=== PATIENT | female | born 1950 | race Caucasian/White ===

== ENCOUNTER 2016-09-21 13:23 | Inpatient (IN) | payer OTHER, MEDICARE ==
[~2016-09-21] VITALS: Ht 165.1 cm; Wt 52.4 kg
[2016-09-21] VITALS (7 sets, daily range): BP systolic 117–130; BP diastolic 71–74; PULSE 74–117; RESP 16–26; O2SAT 95–97
[~2016-09-21 13:23] MED LIST: CLAR10T PO; DIT5 PO; LISI10TA9 PO; SLO64 PO; SYN25 PO; TAMS0.4C29 PO; WEL100 PO
--- NOTE | 2016-09-21 14:07 | ED.REPORT ---
HPI-Abd Pain F 40 and Over Date of Service September 21, 2016 ED Provider: History of Present Illness: cloudy urine and pain with urination for 4 days. 100.4 a few days ago. primary care is scooby joyner. 12/14. flank pain and lower pelvic pain. no nausea or vomiting. Nursing Notes Stated Complaint: POSS DYSURIA Chief Complaint: Female Abdominal Pain Nursing Notes Reviewed: Yes Allergies: Coded Allergies: Sulfa (Sulfonamide Antibiotics) (Verified Allergy, Intermediate, Hives, ) aspirin (Verified Allergy, Intermediate, tinnitus, "stomach problems", ) diclofenac (Verified Allergy, Intermediate, Rash, 09/21/16) peanut (Verified Allergy, Intermediate, Rash, swelling, 09/21/16) Scheduled Beclomethasone Dipropionate (Qvar) 8.7 Gm Aer.w.adap 1 DOSE INH BID Citalopram (Citalopram) 20 Mg Tablet 20 MG PO DAILY Levothyroxine (Levothyroxine) 25 Mcg Tablet 25 MCG PO DAILY Lisinopril (Lisinopril) 20 Mg Tablet 20 MG PO DAILY Magnesium Chloride (Slow-Mag) 64 Mg Tablet 64 MG PO DAILY Scheduled PRN Acetaminophen/Pamabrom (Midol) 1 Each Tablet 1 TABLET PO BID PRN PRN For Pain Albuterol HFA (Proair HFA) 8.5 Gm Hfa.aer.ad 1-2 PUFFS IH q4-6h PRN PRN For Shortness of Breath Loratadine (Claritin) 10 Mg Capsule 10 MG PO DAILY PRN PRN For Congestion General Time Seen by MD: 14:06 Chief Complaint Abdominal pain, Flank pain right, Flank pain left Hx Obtained From: Patient Arrived By: Walk-in Sudden in Onset?: No Onset Occurred: 4 days ago Symptom Duration: Since onset Progression since Onset: Constant, Gradually worsening Location: : Flank left Quality: Painful Severity: Current: Moderate Severity: Maximum: Moderate Recent Healthcare: No recent hospitalization Past Medical History Past Medical History Mild COPD Hypothyroidism Hypertension History of depression with anxiety History of environmental allergies History of adrenal adenoma History of kidney stones Reports: COPD, Hypertension, Denies: Diabetes mellitus Past Surgical History Bladder sling and cystocele repair Tonsillectomy Hysterectomy Smoking History Current Every Day Smoker (1/2 pack a day for 50 years) Social History Alcohol Use: Denies alcohol use Drug Use: Denies drug use Occupation lives with son, work at [employer] 09/21/2016 Ambulatory Status Independent Review of Systems Basic Review of Systems Eyes: Vision NL, No discharge Skin: No bruising, No rash, No itch Psychiatric: Normal thought content GI: Reports: Abdominal pain, Anorexia, Denies: Nausea, Vomiting Female: Reports: Dysuria, Flank pain, Pelvic pain Complete sys rev & neg: except as marked. Physical Exam Vital Signs Vital Signs (First) Date Time Temp Pulse Resp B/P Pulse Ox O2 Delivery O2 Flow Rate FiO2 09/21/16 13:31 36.5 117 26 130/72 96 Room Air Initial VS: Reviewed Head / Eyes: Atraumatic, Normocephalic, PERRL ENT: Mucous membranes moist, Conjunctiva normal, No scleral icterus Neck: Supple, Non-tender, Full range of motion Lymphatic: No lymphadenopathy Extremities: Vascular intact, Neuro intact, No swelling, No tenderness Skin: Warm, Dry, No cyanosis Neurologic: Alert, Oriented, Nonfocal Psychiatric: Mood/affect normal, Behavior normal, Normal thought content General/Constitutional: Awake, No acute distress, Cooperative, Not toxic appearing Distress / Hydration: Positive: Dehydration mild Appears fatigued Respiratory / Chest: Breath sounds = bilat, No respiratory distress, No rales, No rhonchi, No wheezing, No retractions Diminished Breath Sounds: Positive: Decreased bilateral Please note that there were bronchospasms on initial evaluation bu the midlevel, successfully treated. Cardiovascular: Regular rhythm, Heart sounds NL, No gallop, No murmurs, No rubs Heart Rate / Rhythm: Positive: Tachycardia Abdomen: Atraumatic, Soft, Non-tender, McBurney's non-tender, No guarding, No rebound, BS normoactive, No distention, No hernia, No palpable mass, No pulsatile mass Back: Inspection NL, Non-tender, No CVA tenderness Interpretation & Diagnostics Interpretation & Diagnostics: CT KUB IMPRESSION: As discussed above the study is somewhat compromised by absence of intravenous contrast and also absence of significant body fat allowing delineation of the anatomy through the retroperitoneum. There is asymmetric enlargement of the left kidney with perinephric edema, but without hydronephrosis. The appearance is more likely to represent evidence of pyelonephritis on the left but it also could be produced by a recently relieved urinary tract obstruction on the left. Please correlate clinically to determine whether infection may be present as cause of the asymmetric enlargement of the left kidney. Contrast-enhanced CT scanning may become necessary. Note is made of extensive diverticulosis at the sigmoid colon but without acute diverticulitis. No mass or free fluid. Dictated by: Cristhian Restrepo M.D. on 09/21/2016 at 16:51 Lab Results Interpretation Result Diagram: 09/21/16 1445 09/21/16 1745 Test 09/21/16 13:57 09/21/16 14:45 09/21/16 17:45 Urine Color Straw (YELLOW) Urine Appearance Slightly cloudy Urine pH 6.0 (5.0-8.0) Urine Specific [place] 1.010 (1.003-1.035) Urine Protein 100mg/dL (NEG,TRACE) Urine Glucose (UA) Negativemg/dL (NEGATIVE) Urine Ketones Tracemg/dL (NEGATIVE) Urine Occult Blood Large (NEGATIVE) Urine Nitrite Positive (NEGATIVE) Urine Bilirubin Negative (NEGATIVE) Urine Urobilinogen Normalmg/dL (NORMAL) Urine Leukocyte Esterase Large (NEGATIVE) Urine RBC 3-10/hpf (0-2) Urine WBC >50/hpf (0-5) Urine Epithelial Cells Occasional/hpf (NONE-MOD) Urine Crystals None seen (NONE SEEN) Urine Bacteria Many/hpf (NONE-FEW) Urine Hyaline Casts None/lpf (NONE) Urine Granular Casts None seen (NONE SEEN) Urine Waxy Casts None seen (NONE SEEN) Urine Red Blood Cell Casts None seen (NONE SEEN) Urine White Blood Cell Casts None seen (NONE SEEN) Urine Mucus None seen (None Seen) Urine Trichomonas None seen (NONE SEEN) Urine Yeast None (NONE SEEN) Urinalysis Comment None Urine Culture Reflexed Indicated Urine Osmolality 315mOs/kH2O (250-1200) Urine Random Sodium 20mEq/L Urine Random Chloride 10mEq/L White Blood Count 18.9th/mm3 (3.8-10.1) Red Blood Count 3.40mil/mm3 (3.90-5.20) Hemoglobin 10.9g/dL (12.0-15.6) Hematocrit 30.4% (35.0-46.0) Mean Corpuscular Volume 89.4fL (81-100) Mean Corpuscular Hemoglobin 32.1pg (27.0-35.0) Mean Corpuscular Hemoglobin Concent 35.9% (32.0-37.0) Red Cell Distribution Width 11.4% (12.3-15.4) Platelet Count 382bil/L (150-400) Neutrophils (%) (Auto) 82.7% (40-74) Lymphocytes (%) (Auto) 3.4% (14-46) Monocytes (%) (Auto) 12.8% (4-12) Eosinophils (%) (Auto) 0.1% (0-5) Basophils (%) (Auto) 0.1% (0-3) Potassium Level 4.2mEq/L (3.5-5.2) Chloride Level 80mEq/L (97-108) Carbon Dioxide Level 21mmol/L (18-29) Blood Urea Nitrogen 24mg/dL (8-27) Creatinine 1.16mg/dL (0.57-1.00) Estimat Glomerular Filtration Rate 67mL/min (>59) Glucose Level 138mg/dL (60-99) Osmolality 255 (275-300) Lactic Acid Level 0.6mmol/L (0.4-2.0) Uric Acid 4.2mg/dL (2.6-7.2) Calcium Level 9.7mg/dL (8.5-10.1) Total Bilirubin 0.3mg/dL (0.0-1.2) Aspartate Amino Transf (AST/SGOT) 22U/L (0-50) Alanine Aminotransferase (ALT/SGPT) 20U/L (0-32) Alkaline Phosphatase 111U/L (25-165) Troponin T < 0.010ug/L (0.0-0.011) Total Protein 6.3g/dL (6.4-8.4) Albumin 3.1g/dL (3.4-5.0) Thyroid Stimulating Hormone (TSH) 0.773uIU/mL (0.450-4.500) Hold Grijalva Top Tube Received (Received) Sodium Level 121mEq/L (134-144) Lab Results Interpretation: urine positive for nitrates ECG Interpretation ECG Interpretation: Sinus tachycardia with a rate of 103 Time: 15:56 Interpreted by: ED physician Re-Eval/Medical Decision Med Decision/Clinical Course 66 year old female presents to the ER complaining of flank pain and suprapubic pain for 4 days. Labs are shira, patient with a WBC of 19 and sodium at 118. CAre of patient turned over to Jonathon GARCIA, patient is admitted. Source of Hx: Old records, Family Consultation #1: Referral / Consult Name: Viktoria Church MD Consulted With: Nephrology Call Returned at: 16:29 Hat Steamer: Will see patient, Agrees with eval, Agrees with plan Consultation #2: Referral / Consult Name: Jayden Ellington MD Consulted With: Hospitalist Call Returned at: 17:19 Hat Steamer: Will see patient, Agrees with eval, Agrees with plan, Accepts admit Counseled Regarding: Diagnosis, Lab results, Need for admission Discharge & Departure Primary Impression: Pyelonephritis Additional Impression: Hyponatremia Disposition: ADMITTED TO HOSPITAL Discharge Condition All VS Reviewed: Yes Condition: Stable Referrals: Scooby Joyner PA-C (PCP) EDSupervising Provider for APC: Suman Holt MD Attestation Portions of this note were transcribed by Lyndsay Livingston. I, Dr. Holt personally performed the history, physical exam and medical decision-making; I reviewed and confirmed the accuracy of the information in the transcribed note. Signed by: Teodora Abad, 09/21/2016 at 1800. Attending Statement This is a patient initially seen and evaluated by the mid-level provider. However I personally interviewed and examined this patient. This is a 66-year- old with history of hypertension, hypothyroidism, and mild COPD presents with several days of dysuria, now with left flank pain and fever and mild nausea with poor intake. He does not clinically appear toxic, or severely dehydrated. Abdomen is soft and nontender, and she has no CVA tenderness. Lungs are slightly diminished- found she had some initial bronchospasm received a nebulizer in the department, although on my evaluation her lungs are now clear. Laboratory evaluation is notable for marked leukocytosis, as well as a potentially incidental but severe hyponatremia of 118. Obtain her medication list from medical review of records: Albuterol, Qvar, Celexa 20 daily, Claritin 10 mg daily, clotrimazole tablets, levothyroxine 25 g daily, and lisinopril 20 mg daily-she is not on a diuretic. Cultures have been drawn, urine culture is pending. She is receiving gentle fluid secondary to the dehydration but the severe hyponatremia and is being managed carefully. She is getting a CT KUB she does have a prior history of kidney stones-she does not look her sound like an overt stone, but this would exchange architect if present. And she is being started on ceftriaxone. Initial 1 mg dose of ceftriaxone was administered, but I would recommended 2 g loading dose so second gram is being given. In the presence of a hyponatremia of consult to nephrology, and the patient's being admitted for further management. copies to: Scooby Joyner PA-C, Sue ARNP September 21, 2016 14:06 Lyndsay Livingston September 21, 2016 16:29 Suman Holt MD September 21, 2016 16:35
[2016-09-21] MEDS ORDERED: Albuterol-Ipratropium 3 mL Inhalation Solution NEB ONE (14:15)
[2016-09-21] MEDS ORDERED: cefTRIAXone Inj 1,000 MG, Lidocaine PF 1% Inj 2.1 ML in Syringe 0 EACH IM ONE (14:20)
[2016-09-21 14:23] LABS: APPEARANCE,URINE SLIGHTLY CLOUDY (CLEAR,HAZY); COLOR,URINE STRAW (YELLOW); OCCULT BLOOD,URINE LARGE (NEGATIVE); UROBILINOGEN,URINE NORMAL (NORMAL)
[2016-09-21 14:55] LABS: BASOPHILS % (AUTO) 0.1 % (0-3); EOSINOPHILS % (AUTO) 0.1 % (0-5); MONOCYTES % (AUTO) 12.8 % (4-12); Mean Corpuscular Hemoglobin 32.1 pg (27.0-35.0); Mean Corpuscular Volume 89.4 fL (81-100); NEUTROPHILS % (AUTO) 82.7 % (40-74); Platelet Count 382 bil/L (150-400)
[2016-09-21] MEDS ORDERED: cefTRIAXone Inj 1,000 MG in Dextrose 5% Minibag Plus 50 ML IV ONE (16:30)
--- NOTE | 2016-09-21 16:56 | DRSVH ---
PROCEDURE: CT KUB ([id number]) INDICATIONS: L FLank pain TECHNIQUE: Noncontrast 5 mm thick sections acquired from the diaphragms to the symphysis. 5 mm thick coronal an d sagittal reformats were then performed. For radiation dose reduction, the following was used: aut omated exposure control, adjustment of mA and/or kV according to patient size. COMPARISON: None. FINDINGS: Image quality: Excellent. Lung bases: Lung bases are clear. Heart size is normal. Urinary system: The kidneys are asymmetric in size, large on the left and more normal in appearance o n the right, with left-sided perinephric edema. Quality visualization is somewhat limited by absence of intravenous contrast. Underlying hydronephrosis is not found. More inferiorly the course of the ureters through the retroperitoneum and into the bladder level cannot be delineated. 2 ovoid calcif ic radiodensities lie above the upper posterior border of the bladder, of uncertain etiology and clin ical significance. These might represent oral content within bowel loops and would be unlikely to re present stones within the bladder lumen. Several calcifications are present along the retroperitonea l margins bilaterally, but not associated with hydroureter, and considered indeterminant but more lik katelyn vascular than urinary tract in origin.. No kidney stones. No hydronephrosis or perinephric fat stranding. Both ureters appear non-dilated throughout their expected courses. Bladder wall thicknes s is normal; no calcified bladder stones. Other solid organs: Liver and spleen are normal in size. Gallbladder appears normal. Pancreas is n ormal in contours. No adrenal nodules. Peritoneum and bowel: Unenhanced bowel loops demonstrate normal wall thickness and caliber. No free fluid or air. Nodes and vessels: No retroperitoneal or mesenteric adenopathy by size criteria. Aorta and inferior vena cava are normal in caliber. Abdominal wall: No ventral hernias. Pelvis: No free pelvic fluid. No inguinal hernias or adenopathy. Extensive diverticulosis involves the sigmoid colon but no definite acute diverticulitis. Bones: No suspicious bony lesions. No vertebral body compression fractures. IMPRESSION: As discussed above the study is somewhat compromised by absence of intravenous contrast a nd also absence of significant body fat allowing delineation of the anatomy through the retroperitone um. There is asymmetric enlargement of the left kidney with perinephric edema, but without hydroneph rosis. The appearance is more likely to represent evidence of pyelonephritis on the left but it also could be produced by a recently relieved urinary tract obstruction on the left. Please correlate clinically to determine whether infection may be present as cause of the asymmetric enlargement of the left kidney. Contrast-enhanced CT scanning may become necessary. Note is made of extensive diverticulosis at the sigmoid colon but without acute diverticulitis. No mass or free flu id. Dictated by: Cristhian Restrepo M.D. on 09/21/2016 at 16:51 Approved by: Cristhian Restrepo M.D. on 09/21/2016 at 16:55
[2016-09-21 17:00] LABS: OSMOLALITY, URINE 315 mOs/kH2O (250-1200)
--- NOTE | 2016-09-21 17:28 | DRSVH ---
PROCEDURE: X-RAY CHEST, TWO VIEWS ([id number]) INDICATIONS: cough TECHNIQUE: 2 views of the chest were acquired. COMPARISON: [facility], , CHEST 2VW, 07/13/2014, 11:58. FINDINGS: Surgical changes and devices: None. Lungs and pleura: No pleural effusions or pneumothorax. There is hyperinflation of the lungs with f lattening of the hemidiaphragms compatible with COPD. Lungs are clear without consolidation. Mediastinum: Mediastinal contours are normal. Heart size is normal. Bones and chest wall: No suspicious bony abnormalities. Soft tissues appear unremarkable. IMPRESSION: 1. Findings compatible with COPD without evidence of pneumonia. Dictated by: Iraj Marmolejo M.D. on 09/21/2016 at 17:20 Approved by: Iraj Marmolejo M.D. on 09/21/2016 at 17:21
[2016-09-21] MEDS ORDERED: Polyethylene Glycol (PEG) 17 Gm Powder PO PRN (18:20)
[2016-09-21] MEDS ORDERED: Ondansetron 2 mg/mL 2 mL Inj IVPUSH PRN (18:20)
--- NOTE | 2016-09-21 18:20 | PCM.HPMED ---
Subjective Date of Service September 21, 2016 Primary Provider: Admitting Physician: Jayden Ellington MD Primary Care Physician: Destiny Oreilly PA-C Attending Physician: Jayden Ellington MD Admit Status: From the Emergency Department, Full Admit, [facility] Telemetry Chief Complaint: Pyelonephritis and hyponatremia History of Present Illness: This is a 66-year-old female who is been ill for about 4 days. She primarily has noticed urinary symptoms of discoloration cloudiness and burning with urination. She has had intermittent fevers and chills and some bilateral flank pain. She has had no nausea or vomiting but has had anorexia and decreased by mouth intake. She does feel dehydrated and thirsty. She denies any confusion. She also denies urinary retention. In the ER she was noted to have a sodium of 118 and he is on citalopram however this is chronic has been on board for at least 2 years with no recent dose changes. Nephrology wondered if she had SIADH relating to citalopram and initially recommended holding this drug after seen in the ER and a fluid restriction. However she does also appear somewhat hypovolemic. She was given 1 L of saline in the emergency department. She denies any riders. No other infectious symptoms including rhinorrhea cough sore throat. No diarrhea. No blood per rectum. Review of Systems: She denies any visual changes. No cold or heat intolerance. All else reviewed and otherwise negative except as noted in history of present illness. Allergies Coded Allergies: Sulfa (Sulfonamide Antibiotics) (Verified Allergy, Unknown, 10/13/11) aspirin (Verified Allergy, Unknown, 10/13/11) diclofenac (Verified Allergy, Unknown, 10/13/11) Home Medications Bupropion-Expunged Drug, Do Not Renew! (Bupropion-Expunged Drug, Do Not Renew!) 100 Mg Tablet 100 MG PO BID Levothyroxine-Expunged Drug, Do Not Renew! (Synthroid-Expunged Drug, Do Not Renew!) 25 Mcg Tablet 25 MCG PO DAILY Lisinopril-Expunged Drug, Do Not Renew! (Lisinopril-Expunged Drug, Do Not Renew! ) 10 Mg Tablet 10 MG PO DAILY Magnesium Chloride-Expunged Drug, Do Not Laurent (Qtum-Frp-Yhahohrv Drug, Do Not Renew!) 64 Mg Tabcr 64 MG PO DAILY Oxybutynin-Expunged Drug, Do Not Renew! (Ditropan-Expunged Drug, Do Not Renew!) 5 Mg Tablet 5 MG PO TID Tamsulosin-Expunged Drug, Do Not Renew! (Tamsulosin-Expunged Drug, Do Not Renew! ) 0.4 Mg Cap.sr.24h 0.4 MG PO DAILY Scheduled PRN Loratadine-Expunged Drug, Do Not Renew! (Loratadine-Expunged Drug, Do Not Renew! ) 10 Mg Tablet 10 MG PO DAILY PRN PRN PMH Depression Anxiety Essential hypertension Adrenal adenoma Nephrolithiasis Hypothyroidism Surgical History Bladder suspension Hysterectomy Tonsillectomy Family History Negative for kidney stones Social History Occupation: retired Hx Alcohol Use: Yes (RARELY) Hx Substance Use: No Hx Tobacco Use: No Smoking Status: Current Every Day Smoker (1/2 pack a day for 50 years) Living Arrangement: with Family Exam Vital Signs Vital Sign - Last Date Time Temp Pulse Resp B/P Pulse Ox O2 Delivery O2 Flow Rate FiO2 09/21/16 17:17 78 18 125/71 97 Room Air 09/21/16 13:31 36.5 Exam Oriented 3. No distress. Fluent speech. Normal affect. Normal skull. Normal nose and ears. Anicteric sclera, symmetric pupils Oropharynx is unremarkable suffered dry mucosa, no facial droop. Neck is supple, normal thyroid. No adenopathy. Lungs are clear, normal effort rate. Heart is regular without murmur gallop or rub. Abdomen soft, nondistended or tender. Extremities are free of pedal edema. Good radial and pedal pulses. Skin is free of rash, lesions. No petechiae or ecchymosis. Joints are grossly normal. Cranial nerves are grossly normal. Motor strength is normal in all extremities. Normal muscular tone. She does have decreased skin turgor Lab and Diagnostics Result Diagram: 09/21/16 1445 09/21/16 1445 X-Rays, CTs and MRIs Chest x-ray with hyperinflated lungs CT KUB: IMPRESSION: As discussed above the study is somewhat compromised by absence of intravenous contrast and also absence of significant body fat allowing delineation of the anatomy through the retroperitoneum. There is asymmetric enlargement of the left kidney with perinephric edema, but without hydronephrosis. The appearance is more likely to represent evidence of pyelonephritis on the left but it also could be produced by a recently relieved urinary tract obstruction on the left. Please correlate clinically to determine whether infection may be present as cause of the asymmetric enlargement of the left kidney. Contrast-enhanced CT scanning may become necessary. Note is made of extensive diverticulosis at the sigmoid colon but without acute diverticulitis. No mass or free fluid. Dictated by: Cristhian Restrepo M.D. on 09/21/2016 at 16:51 Approved by: Cristhian Restrepo M.D. on 09/21/2016 at 16:55 Assessment & Plan 1. Acute pyelonephritis, POA. The plan is empiric ceftriaxone with blood and urine cultures. 2. Hyponatremia, euvolemic versus hypovolemic. POA. Nephrology is recommending holding citalopram at this point and fluid restriction. We will follow her sodium in the morning. 3. Hypertension, POA. We will follow this clinically and hold medications tonight which typically also include lisinopril. 4. Depression, POA. Follow clinically hold citalopram as recommended 5. Remote nephrolithiasis, not POA. CT scan is negative for evidence of obstructive stones. Patient is full resuscitation. She is admitted inpatient status with anticipated length of stay of over 2 nights. Pain Evaluation: Adequate Pain Control Resuscitation Status: CPR: Attempt Resuscitation Time spent 40 minutes Jayden Ellington MD September 21, 2016 18:20
--- NOTE | 2016-09-21 18:43 | NUR ---
Admit to PCC Pt admitted to PCC room 2006. Pt was transported in a guerney and transferred with SBA to bed. Report was received from ED RN Darrel. Pt alert and oriented, JUANITA. Telemetry initiated, tech notified. Daughter is at bedside.
--- NOTE | 2016-09-21 18:46 | NUR ---
TELE: Documented on wrong patient @ 1827 and wrong box was placed.
[2016-09-21] MEDS ORDERED: ALBU8.5H2 IH (19:18)
[2016-09-21] MEDS ORDERED: CITA20TA11 PO (19:18)
[2016-09-21] MEDS ORDERED: BECL8.7A5 INH (19:18)
[2016-09-21] MEDS ORDERED: LISI-567 PO (19:18)
[2016-09-21] MEDS ORDERED: LEVO25TA5 PO (19:19)
[2016-09-21] MEDS ORDERED: SLO64 PO (19:20)
[2016-09-21] MEDS ORDERED: LORA10CA PO (19:20)
[2016-09-21] MEDS ORDERED: ACET1TAB95 PO (19:23)
[2016-09-21] MEDS: Heparin 5,000 Unit/mL Inj SUBQ SCH ×2 (21:07→23:44)
[2016-09-21] MEDS: 0.9% Sodium Chloride 1,000 ML IV SCH (21:55)
[2016-09-22] VITALS (9 sets, daily range): BP systolic 123–133; BP diastolic 71–82; PULSE 79–105; RESP 16–22; O2SAT 92–96
[2016-09-22 03:07] LABS: BASOPHILS % (AUTO) 0.2 % (0-3); EOSINOPHILS % (AUTO) 0.1 % (0-5); MONOCYTES % (AUTO) 14.1 % (4-12); Mean Corpuscular Hemoglobin 32.6 pg (27.0-35.0); Mean Corpuscular Volume 89.3 fL (81-100); NEUTROPHILS % (AUTO) 79.1 % (40-74); Platelet Count 393 bil/L (150-400)
--- NOTE | 2016-09-22 04:49 | NUR ---
Admit/ NOC: Admit/ med rec completed via admit RN. Pt on tele showing Stach. Vitals stable- pt denies any pain. Sp02 90s on RA. NS infusing @100. pt put out minimal amount of cloudy urne overnight. Bladder scan performed showing less then 160. Pt sleeping comfortably. care ongoing.
[2016-09-22] MEDS: Heparin 5,000 Unit/mL Inj SUBQ SCH ×2 (08:30→16:02)
--- NOTE | 2016-09-22 09:00 | CONS ---
[address] [address] CONSULTATION REPORT PATIENT: JUMANA AKBAR : 1950 MR#: [id number] ADMIT: 09/21/2016 JOB ID: [id number] DATE OF SERVICE: 09/21/2016 REQUESTING PHYSICIAN: Suman Holt MD REASON FOR CONSULTATION: Management of hyponatremia. CHIEF COMPLAINT: Dysuria. HISTORY OF PRESENT ILLNESS: This is a 66-year-old, lady, with significant past medical history of hypertension, tobacco abuse, hypothyroid, COPD, depression, who presented to the hospital due to painful urination and fever. The patient reported that she started having urinary symptoms including frequency, discolored and cloudy urine, dysuria and bilateral lower back pain. She also had subjective fever three days ago. The temperature was 100.4. The patient went to Urgent Care this morning. The urine dipstick showed 2+ leukocytes and 2+ protein. The patient was told to go to the emergency department for further investigation. Upon arrival, her vitals was 36.5, pulse of 117, respiratory rate of 26, blood pressure of 130/72, O2 sat was 96 on room air. The initial blood work showed WBC of 18.9, hemoglobin of 10.9. Her initial BMP showed sodium of 118, potassium of 4.2, chloride of 80, bicarb of 21, BUN of 24, creatinine of 1.16. The patient received ceftriaxone 1 g in the emergency department. The patient stated that she has not been eating and drinking well over the past couple of days. Her previous record showing that she has known history of chronic hyponatremia. April 2011, showed a sodium of 129. November 2016, sodium of 123. The patient was on Wellbutrin for depression. Celexa was started in April 2016. Prior to this episode of sickness, she had always consumed plenty amount of fluids. The patient initially was also on triamterene and hydrochlorothiazide for the blood pressure, and discontinued because of hyponatremia. At this time, the patient reports no nausea, vomiting, no diarrhea. PAST MEDICAL HISTORY: 1. Hypothyroid. 2. Hypertension. 3. Depression. 4. Tobacco abuse. 5. COPD. 6. Urinary incontinence. 7. Adrenal nodule noted from the CAT scan in February 2011. 8. COPD and tobacco abuse. PAST SURGICAL HISTORY: Status post history of hysterectomy, status post tonsillectomy, status post bladder sling and cystocele repair. SOCIAL HISTORY: The patient is an active smoker. She smokes 1/2 pack a day for at least 15 years. Denies current use of alcohol or illicit drugs. 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 She lives with her son. She is single. ALLERGIES: SULFA, ASPIRIN, DICLOFENAC. CURRENT MEDICATIONS: Lisinopril, levothyroxine, Celexa, Claritin, QVAR, clotrimazole, albuterol. REVIEW OF SYSTEMS: Fourteen point review of system was performed. PHYSICAL EXAMINATION: Vitals: Temperature 36.5, pulse 74, respiratory rate 18, blood pressure 125/71. I have checked orthostatic vitals myself, sitting 128/70, heart rate 89, standing blood pressure 123/80, heart rate, 97. General appearance: Awake, alert x3. In no acute distress. Thin. HEENT: Mild pallor. No jaundice. No JVD. No lymphadenopathy. No thyroid enlargement. Dry mucous membranes. Atraumatic. PERRLA. Heart: Regular rhythm. Normal S1, S2. No murmurs, rubs, or gallops. Lungs: Clear to auscultation bilaterally. No wheezing. No rhonchi. Abdomen is soft, active bowel sounds. Mild tenderness on the suprapubic area. Nondistended. No hepatosplenomegaly. Extremities: No edema, cyanosis. Skin turgor is fair. IMAGING: CT: The kidneys are asymmetric in size, large on the left and more normal in appearance on the right, with left-sided perinephric edema. No hydronephrosis identified. No kidney stones. No hydronephrosis or perinephric fat stranding. Both ureters appeared nondilated throughout their expected courses. No adrenal nodules. LABORATORY DATA: WBC 18.9, hemoglobin 10.9. Sodium 118, potassium 4.2, chloride 80, bicarb 21, BUN 24, creatinine 1.16, glucose 138, calcium 9.7. AST 22, ALT 20, total protein 6.3, albumin 3.1. UA with pH 6.0, specific gravity 1.010, protein 100, large blood, 3-10 RBCs, more than 50 WBCs, and many bacteria, 315 urine osmolality 20 urine sodium, and urine chloride is 10. IMPRESSION/PLAN: 1. Chronic hyponatremia. 2. Systemic inflammatory response syndrome (SIRS). 3. Suspected acute pyelonephritis. 4. History of hypertension. 5. History of hypothyroid. 6. Tobacco abuse and chronic obstructive pulmonary disease (COPD). This lady came in with urinary symptoms. She was found to have leukocytosis and pyuria. She received IV ceftriaxone, treating for acute pyelonephritis. Of note, she was found to have sodium level of 118. Previous record showing that she had history of hyponatremia and was found to be related to diuretics. She stopped taking hydrochlorothiazide several years ago. Of note, Celexa was started in April 2016. The patient reports no history of nausea, vomiting, diarrhea. Yet, she reports poor appetite over the past 2-3 days. She does not take any diuretics at the moment. We do not know the onset of the hyponatremia. I assume that this lady has had worsening hyponatremia over the past 48 hours. At this point, I would like to check her serum osmo, check uric acid level. I did check orthostatics vital signs myself. I do not see any positive orthostatics vitals. However, she has received IV bolus in the ER. I wonder if she has underlying disease of SIADH secondary to SSRI. I would like to repeat her serum sodium. If it is trending down, I will recommend to start 3% normal saline at 30 cc/h and monitor her sodium every 2 hours. Given no symptomatic hyponatremia, I would not give her any 3% bolus at the moment. Thank you for allowing me to participate in the care of your patient. We will monitor along with you. ARELI
[2016-09-22] MEDS: cefTRIAXone Inj 1,000 MG in Dextrose 5% Minibag Plus 50 ML IV SCH (09:04)
[2016-09-22] MEDS: 0.9% Sodium Chloride 1,000 ML IV SCH ×2 (11:03→20:00)
[2016-09-22] MEDS: Albuterol-Ipratropium 3 mL Inhalation Solution NEB PRN ×2 (12:23→17:04)
--- NOTE | 2016-09-22 12:25 | PCM.PNNEPH ---
Subjective Date of Service September 22, 2016 Subjective Na level continues to rise, current value is 125. No fever overnight. She is doing better. Exam Vital Signs Vital Sign - Last Date Time Temp Pulse Resp B/P Pulse Ox O2 Delivery O2 Flow Rate FiO2 09/22/16 09:06 37.0 100 22 133/82 94 Room Air Intake and Output 09/21/16 09/21/16 09/22/16 Cumulative From/Thru 15:00 23:00 07:00 09/21/16 13:31 - 09/22/16 06:08 Intake Total 1033 ml 1033 ml Output Total 175 ml 175 ml Balance 858 ml 858 ml Intake Oral 520 ml 520 ml IV Total 513 ml 513 ml Output Urine Total 175 ml 175 ml Exam General appearance: Awake, alert x3. In no acute distress. Thin. HEENT: Mild pallor. No jaundice. No JVD. No lymphadenopathy. No thyroid enlargement. Dry mucous membranes. Atraumatic. PERRLA. Heart: Regular rhythm. Normal S1, S2. No murmurs, rubs, or gallops. Lungs: Clear to auscultation bilaterally. No wheezing. No rhonchi. Abdomen is soft, active bowel sounds. Mild tenderness on the suprapubic area. Nondistended. No hepatosplenomegaly. Extremities: No edema, cyanosis. Skin turgor is fair. Lab and Diagnostics Result Diagram: 09/22/16 0247 09/22/16 0810 X-Rays, CTs and MRIs Chest x-ray with hyperinflated lungs CT KUB: IMPRESSION: As discussed above the study is somewhat compromised by absence of intravenous contrast and also absence of significant body fat allowing delineation of the anatomy through the retroperitoneum. There is asymmetric enlargement of the left kidney with perinephric edema, but without hydronephrosis. The appearance is more likely to represent evidence of pyelonephritis on the left but it also could be produced by a recently relieved urinary tract obstruction on the left. Please correlate clinically to determine whether infection may be present as cause of the asymmetric enlargement of the left kidney. Contrast-enhanced CT scanning may become necessary. Note is made of extensive diverticulosis at the sigmoid colon but without acute diverticulitis. No mass or free fluid. Dictated by: Cristhian Restrepo M.D. on 09/21/2016 at 16:51 Approved by: Cristhian Restrepo M.D. on 09/21/2016 at 16:55 Plan Impression 1. Chronic hyponatremia. Hypovolemia per exam. Responding well so far with NS. Given h/o multiple episodes of hyponatremia in the past, I wonder if she has underlying disease of SIADH related to SSRI. 2. Systemic inflammatory response syndrome (SIRS). 3. Suspected acute pyelonephritis. 4. History of hypertension. 5. History of hypothyroid. 6. Tobacco abuse and chronic obstructive pulmonary disease (COPD). Plan: Hold celexa. Continue NS 80 ml/hr. Check Na level at 1400. Continue IV abx. Viktoria Church MD September 22, 2016 12:25
--- NOTE | 2016-09-22 13:55 | NUR ---
Social Work: Initial Assessment Data & Assessment: EMR reviewed. See Initial Assessment. Patient is a 66 y/o female that admitted with Hyponatremia and Pylonephritis. SW met with patient and patient's daughter, Claudia Peck, at bedside to complete initial assessment, SW role explained and discharge planning discussed. Patient's alert and oriented x 3. Patient's PCP is Dr. Destiny Oreilly and patient's insurance is [employer] [place] [employer] and Medicare secondary. Patient does not have an Advance Directive/DPOA, but SW provided patient with the information. Patient's re-admit score is 2 no risk. Patient does not have any VA or LTC benefits. Patient lives in a one story home with her son. Patient is independent at baseline and is working. Patient does not drive and depend's on her son for transportation. Patient has no HH or SNF history. Patient has no DME. Patient does not have any current discharge needs. SW wrote contact information on patient's whiteboard. Patient does not have any current discharge needs. SW will continue to follow. Plan: Patient will discharge home when medicall ready via POV. SW will continue to follow and assist patient throughout stay. Jil Rodriguez LMSW, K[place] Addendum: 09/22/16 at 1409 by JIL RODRIGUEZ Amended: Links added.
[2016-09-22] MEDS: Fluticasone 100 mCg Inhaler INHALATION SCH ×2 (14:01→19:59)
--- NOTE | 2016-09-22 14:43 | PCM.PNMED ---
Subjective Date of Service September 22, 2016 Subjective Francine Terry is a 66 year old woman currently under treatment for pyelonephritis. Hospital day #2 Overnight: Patient was in sinus tachycardia for some time during the night. Today: The patient states she is having a lot of wheezing and its somewhat difficult for her to breathe. She also complains of back pain. The remainder of the review of systems is negative except as noted above. Exam Vital Signs Vital Sign - Last Date Time Temp Pulse Resp B/P Pulse Ox O2 Delivery O2 Flow Rate FiO2 09/22/16 12:00 96 20 96 Room Air 09/22/16 09:06 37.0 133/82 Intake and Output 09/21/16 09/21/16 09/22/16 Cumulative From/Thru 15:00 23:00 07:00 09/21/16 13:31 - 09/22/16 06:08 Intake Total 1033 ml 1033 ml Output Total 175 ml 175 ml Balance 858 ml 858 ml Intake Oral 520 ml 520 ml IV Total 513 ml 513 ml Output Urine Total 175 ml 175 ml Exam Oriented 3. No distress. Fluent speech. Normal affect. Normal skull. Normal nose and ears. Anicteric sclera, symmetric pupils Oropharynx is unremarkable suffered dry mucosa, no facial droop. Neck is supple, normal thyroid. No adenopathy. Lungs show a diffused expiratory wheeze and somewhat increased effort. Heart is regular without murmur gallop or rub. Abdomen soft, nondistended or tender. Extremities are free of pedal edema. Good radial and pedal pulses. Skin is free of rash, lesions. No petechiae or ecchymosis. Joints are grossly normal. Cranial nerves are grossly normal. Motor strength is normal in all extremities. Normal muscular tone. She does have decreased skin turgor IVs and Medications Medications Reviewed: Medications were reviewed in detail Lab and Diagnostics Result Diagram: 09/22/16 0247 09/22/16 0810 X-Rays, CTs and MRIs X-RAY CHEST, TWO VIEWS IMPRESSION: 1. Findings compatible with COPD without evidence of pneumonia. Dictated by: Iraj Marmolejo M.D. on 09/21/2016 at 17:20 CT KUB IMPRESSION: As discussed above the study is somewhat compromised by absence of intravenous contrast and also absence of significant body fat allowing delineation of the anatomy through the retroperitoneum. There is asymmetric enlargement of the left kidney with perinephric edema, but without hydronephrosis. The appearance is more likely to represent evidence of pyelonephritis on the left but it also could be produced by a recently relieved urinary tract obstruction on the left. Please correlate clinically to determine whether infection may be present as cause of the asymmetric enlargement of the left kidney. Contrast-enhanced CT scanning may become necessary. Note is made of extensive diverticulosis at the sigmoid colon but without acute diverticulitis. No mass or free fluid. Dictated by: Cristhian Restrepo M.D. on 09/21/2016 at 16:51 Assessment & Plan Francine Terry is a 66 year old woman currently under treatment for pyelonephritis. Hospital day #2 Acute pyelonephritis, present on admission, active -The plan is empiric ceftriaxone with blood and urine cultures. Hyponatremia, present on admission, active -Likely multifactorial with some evidence pointing to mild SIADH and clinical exam pointing to hypovolemia -Nephrology is recommending holding citalopram at this point and fluid restriction. Continue to follow sodium -Patient had NS running per nephrology. She is about to correct 10 mEq in 24 hours, will stop NS and check sodium level COPD, not in exacerbation, active -Restarted patient's Qvar and added DuoNebs -Keep O2 saturation between 88 and 92% Hypertension, present on admission, active -We will follow this clinically and hold medications tonight which typically also include lisinopril. Depression, present on admission, active -Follow clinically hold citalopram as recommended Remote history of nephrolithiasis -CT scan is negative for evidence of obstructive stones. Disposition: Anticipate patient will be in house for several more days. VTE Prophylaxis: Sub-Q Heparin (Unfractionated) Resuscitation Status: CPR: Attempt Resuscitation Time spent 30 minutes Attending Statement I have seen and evaluated patient at bedside in addition to directly supervising care provided by resident physician. I agree with above documentation. Based on FU sodium level of 124, i have restarted NS 0.9% at 60cc/hr Erika Angel DO September 22, 2016 13:50 Steve Marcos DO September 22, 2016 15:56
[2016-09-22] MEDS ORDERED: 0.9% Sodium Chloride 1,000 ML IV SCH (15:55)
--- NOTE | 2016-09-22 18:24 | NUR ---
Sodium/Fluid restriction The pt's most recent sodium was at 123 and the kidney doc's are now consulting. The pt is on a fluid restriction of 1000mLs/24 hours. PO sodium has been order, and not yet arrived from pharmacy. Some mild back pain is being reported, which is relieved by PO tylenol.
[2016-09-23] VITALS (10 sets, daily range): BP systolic 118–155; BP diastolic 71–81; PULSE 73–96; RESP 16–22; O2SAT 94–97
[2016-09-23] MEDS: Heparin 5,000 Unit/mL Inj SUBQ SCH ×3 (00:47→16:30)
[2016-09-23 03:00] LABS: BASOPHILS % (AUTO) 0.3 % (0-3); EOSINOPHILS % (AUTO) 0.4 % (0-5); MONOCYTES % (AUTO) 16.2 % (4-12); Mean Corpuscular Volume 90.8 fL (81-100); NEUTROPHILS % (AUTO) 72.9 % (40-74); Platelet Count 443 bil/L (150-400)
[2016-09-23] MEDS: 0.9% Sodium Chloride 1,000 ML IV SCH (04:11)
[2016-09-23] MEDS: Albuterol-Ipratropium 3 mL Inhalation Solution NEB PRN ×2 (07:48→13:56)
[2016-09-23] MEDS: cefTRIAXone Inj 1,000 MG in Dextrose 5% Minibag Plus 50 ML IV SCH (08:34)
[2016-09-23] MEDS: Fluticasone 100 mCg Inhaler INHALATION SCH ×2 (08:34→19:45)
--- NOTE | 2016-09-23 11:39 | PCM.PNMED ---
Subjective Date of Service September 23, 2016 Subjective Patient notes still feeling weaker than baseline, but overall improved since her presentation. Notes mood is also a little more low, is feeling more depressed since discontinuing citalopram on admission. Appetite is good however , denies any nausea or vomiting. He has had no recurrence of fever or chills since her admission to hospital. Denies any palpitations shortness of breath. Denies any urinary symptoms such as dysuria or frequency. Has headaches blurry visions or other complaints at this time. Exam Vital Signs Vital Sign - Last Date Time Temp Pulse Resp B/P Pulse Ox O2 Delivery O2 Flow Rate FiO2 09/23/16 08:32 36.6 73 22 130/71 94 Room Air Intake and Output 09/22/16 09/22/16 09/23/16 Cumulative From/Thru 15:00 23:00 07:00 09/21/16 13:31 - 09/23/16 06:05 Intake Total 2388 ml 1634 ml 5055 ml Output Total 1260 ml 900 ml 2335 ml Balance 1128 ml 734 ml 2720 ml Intake Oral 1480 ml 300 ml 2300 ml IV Total 908 ml 1334 ml 2755 ml Output Urine Total 1260 ml 900 ml 2335 ml # Voids 2 2 General: Alert, Oriented X3, Cooperative Mouth: Mucous Membr Moist/[place] Chest & Lungs: Clear to auscultation & percussion Cardiovascular: Regular Rate/Rhythm Abdomen: Non-tender Extremities: No cyanosis/clubbing/edma bilat Skin: Other (skin continues to have mild decrease in turgor) Neurological: Grossly Neurologically Intact IVs and Medications Medications Reviewed: Medications were reviewed in detail Lab and Diagnostics Result Diagram: 09/23/16 0234 09/23/16 0940 X-Rays, CTs and MRIs X-RAY CHEST, TWO VIEWS IMPRESSION: 1. Findings compatible with COPD without evidence of pneumonia. Dictated by: Iraj Marmolejo M.D. on 09/21/2016 at 17:20 CT KUB IMPRESSION: As discussed above the study is somewhat compromised by absence of intravenous contrast and also absence of significant body fat allowing delineation of the anatomy through the retroperitoneum. There is asymmetric enlargement of the left kidney with perinephric edema, but without hydronephrosis. The appearance is more likely to represent evidence of pyelonephritis on the left but it also could be produced by a recently relieved urinary tract obstruction on the left. Please correlate clinically to determine whether infection may be present as cause of the asymmetric enlargement of the left kidney. Contrast-enhanced CT scanning may become necessary. Note is made of extensive diverticulosis at the sigmoid colon but without acute diverticulitis. No mass or free fluid. Dictated by: Cristhian Restrepo M.D. on 09/21/2016 at 16:51 Assessment & Plan Frnacine Terry is a 66 year old woman currently under treatment for pyelonephritis. Hospital day #2 Acute pyelonephritis, present on admission, active -The plan is empiric ceftriaxone started initially with blood and urine cultures ending - Blood cultures now negative greater than 24 hours with urine culture growing out highly resistant ESBL. . - Given stable clinical condition without fever or other urinary symptoms at this time, we will trial one dose fosfomycin 3 g on curbside recommendation of infectious disease. - May consider more aggressive therapy should condition worsen or patient demonstrated other evidence of recurrent or worsening infection. Hyponatremia, present on admission, active -Likely multifactorial with some evidence pointing to mild SIADH and clinical exam pointing to hypovolemia -Nephrology is recommending holding citalopram at this point and fluid restriction. Continue to follow sodium -Patient had NS running overnight per nephrology, discontinue morning however sodium stabilized at 127 over past 6 hours. - We will consider further adjustment based on nephrology recommendations. COPD, not in exacerbation, active -Restarted patient's Qvar and added DuoNebs -Keep O2 saturation between 88 and 92% Hypertension, present on admission, active -We will follow this clinically and hold medications tonight which typically also include lisinopril. Depression, present on admission, active -Follow clinically, she is noting a worsening mood with CITALOPRAM - We will follow-up in nephrology consider restarting medication, first trial of alternative non-SSRI therapy though patient notes Wellbutrin has been ineffective in the past so ideally would like to restart citalopram if patient can tolerate this. Remote history of nephrolithiasis -CT scan is negative for evidence of obstructive stones. Disposition: Anticipate patient will be in house for several more days. Pain Evaluation: Adequate Pain Control VTE Prophylaxis: Sub-Q Heparin (Unfractionated) Resuscitation Status: CPR: Attempt Resuscitation Time spent 35 minutes Steve Marcos DO September 23, 2016 11:39
--- NOTE | 2016-09-23 13:23 | PCM.PNNEPH ---
Subjective Date of Service September 23, 2016 Subjective Patient responded well with normal saline initially. Sodium michelle from 118 to 125. Later on it drops to 124 while being on normal saline. Hence I stopped normal saline and put her on fluid restriction and salt tab. Her sodium michelle to 127. I checked her orthostatic vitals today which was negative. lying 123/74, 83 sitting 118/75, 87 standing 131/78, 87 Exam Vital Signs Vital Sign - Last Date Time Temp Pulse Resp B/P Pulse Ox O2 Delivery O2 Flow Rate FiO2 09/23/16 12:25 87 131/78 09/23/16 08:32 36.6 22 94 Room Air Intake and Output 09/22/16 09/22/16 09/23/16 Cumulative From/Thru 15:00 23:00 07:00 09/21/16 13:31 - 09/23/16 06:05 Intake Total 2388 ml 1634 ml 5055 ml Output Total 1260 ml 900 ml 2335 ml Balance 1128 ml 734 ml 2720 ml Intake Oral 1480 ml 300 ml 2300 ml IV Total 908 ml 1334 ml 2755 ml Output Urine Total 1260 ml 900 ml 2335 ml # Voids 2 2 Exam General appearance: Awake, alert x3. In no acute distress. Thin. HEENT: Mild pallor. No jaundice. No JVD. No lymphadenopathy. No thyroid enlargement. Dry mucous membranes. Atraumatic. PERRLA. Heart: Regular rhythm. Normal S1, S2. No murmurs, rubs, or gallops. Lungs: Occasional wheezing bilaterally Abdomen is soft, active bowel sounds. Mild tenderness on the suprapubic area. Nondistended. No hepatosplenomegaly. Extremities: No edema, cyanosis. Skin turgor is fair. Lab and Diagnostics Result Diagram: 09/23/16 0234 09/23/16 0940 X-Rays, CTs and MRIs X-RAY CHEST, TWO VIEWS IMPRESSION: 1. Findings compatible with COPD without evidence of pneumonia. Dictated by: Iraj Marmolejo M.D. on 09/21/2016 at 17:20 CT KUB IMPRESSION: As discussed above the study is somewhat compromised by absence of intravenous contrast and also absence of significant body fat allowing delineation of the anatomy through the retroperitoneum. There is asymmetric enlargement of the left kidney with perinephric edema, but without hydronephrosis. The appearance is more likely to represent evidence of pyelonephritis on the left but it also could be produced by a recently relieved urinary tract obstruction on the left. Please correlate clinically to determine whether infection may be present as cause of the asymmetric enlargement of the left kidney. Contrast-enhanced CT scanning may become necessary. Note is made of extensive diverticulosis at the sigmoid colon but without acute diverticulitis. No mass or free fluid. Dictated by: Cristhian Restrepo M.D. on 09/21/2016 at 16:51 Plan Impression 1. Chronic hyponatremia. Hypovolemia per exam initially. Patient responded well with normal saline. Sodium michelle from 118 to 125. Later on it drops to 124 while being on normal saline. Normal saline was stopped and I put her on fluid restriction and salt tab last night. Her sodium michelle to 127. I checked her orthostatic vitals today which was negative. lying 123/74, 83 sitting 118/75, 87 standing 131/78, 87 She is now euvolemic. I will continue treating as SIADH. 2. Systemic inflammatory response syndrome (SIRS). 3. Acute pyelonephritis. ESBL Escherichia coli. 4. History of hypertension. 5. History of hypothyroid. 6. Tobacco abuse and chronic obstructive pulmonary disease (COPD). Plan: repeat urine Na and osm. Hold celexa. Discontinue normal saline. Continue salt 2 g twice a day Fluid restriction 1 L a day. Check Na level at 1400. Viktoria Church MD September 23, 2016 13:23
[2016-09-23 18:13] LABS: OSMOLALITY, URINE 394 mOs/kH2O (250-1200)
[2016-09-24] VITALS (12 sets, daily range): BP systolic 136–150; BP diastolic 80–92; PULSE 78–97; RESP 18–22; O2SAT 92–96
[2016-09-24] MEDS: Heparin 5,000 Unit/mL Inj SUBQ SCH ×3 (00:16→15:48)
[2016-09-24] MEDS: Albuterol-Ipratropium 3 mL Inhalation Solution NEB PRN ×3 (00:32→19:10)
--- NOTE | 2016-09-24 05:24 | NUR ---
Back/Headache pain Pt medicated with PRN Tylenol as available, but c/o persistent headache despite medication. Ice pack and warm blanket given. Pt reports this helps some, but is not pain free. Pt observed sleeping at this time, 0525.
[2016-09-24] MEDS: Fluticasone 100 mCg Inhaler INHALATION SCH ×2 (08:18→19:30)
--- NOTE | 2016-09-24 09:09 | PCM.PNMED ---
Subjective Date of Service September 24, 2016 Subjective Francine Terry is a 66 year old woman currently under treatment for pyelonephritis and SIADH. Hospital day #4 Overnight: No acute events. Today: The patient states that she "misses" her Celexa and her mood is much worse without it. Her back pain is somewhat improved. Her breathing is much improved after nebulizer treatment. The remainder of the review of systems is negative except as noted above. Exam Vital Signs Vital Sign - Last Date Time Temp Pulse Resp B/P Pulse Ox O2 Delivery O2 Flow Rate FiO2 09/24/16 08:32 80 09/24/16 08:25 22 94 09/24/16 08:15 36.8 150/88 Room Air Intake and Output 09/23/16 09/23/16 09/24/16 Cumulative From/Thru 15:00 23:00 07:00 09/21/16 13:31 - 09/24/16 05:42 Intake Total 390 ml 75 ml 5520 ml Output Total 1025 ml 600 ml 3960 ml Balance -635 ml -525 ml 1560 ml Intake Oral 390 ml 75 ml 2765 ml IV Total 2755 ml Output Urine Total 1025 ml 600 ml 3960 ml # Voids 2 # Bowel Movements 2 2 Exam Oriented 3. No distress. Fluent speech. Normal affect. Normal skull. Normal nose and ears. Anicteric sclera, symmetric pupils Oropharynx is unremarkable. Mucosa moist and pink. Neck is supple, normal thyroid. No adenopathy. Lungs are clear to auscultation with reduced breath sounds. Heart is regular without murmur gallop or rub. Abdomen soft, nondistended or tender. Extremities are free of pedal edema. Good radial and pedal pulses. Skin is free of rash, lesions. No petechiae or ecchymosis. Joints are grossly normal. Cranial nerves are grossly normal. Motor strength is normal in all extremities. Normal muscular tone. IVs and Medications Medications Reviewed: Medications were reviewed in detail Lab and Diagnostics Result Diagram: 09/23/16 0234 09/23/16 1815 X-Rays, CTs and MRIs X-RAY CHEST, TWO VIEWS IMPRESSION: 1. Findings compatible with COPD without evidence of pneumonia. Dictated by: Iraj Marmolejo M.D. on 09/21/2016 at 17:20 CT KUB IMPRESSION: As discussed above the study is somewhat compromised by absence of intravenous contrast and also absence of significant body fat allowing delineation of the anatomy through the retroperitoneum. There is asymmetric enlargement of the left kidney with perinephric edema, but without hydronephrosis. The appearance is more likely to represent evidence of pyelonephritis on the left but it also could be produced by a recently relieved urinary tract obstruction on the left. Please correlate clinically to determine whether infection may be present as cause of the asymmetric enlargement of the left kidney. Contrast-enhanced CT scanning may become necessary. Note is made of extensive diverticulosis at the sigmoid colon but without acute diverticulitis. No mass or free fluid. Dictated by: Cristhian Restrepo M.D. on 09/21/2016 at 16:51 Assessment & Plan Francine Terry is a 66 year old woman currently under treatment for pyelonephritis and SIADH. Hospital day #4 Acute pyelonephritis secondary to ESBL, present on admission, active - Blood cultures negative x 48 hours - Given stable clinical condition without fever or other urinary symptoms at this time, we will trial one dose fosfomycin 3 g on curbside recommendation of infectious disease. - Official consultation obtained. We await recommendations. Hyponatremia, present on admission, active -Likely multifactorial: Initially due to hypovolemia and SIADH, now secondary to SIADH alone -Nephrology is recommending holding citalopram at this point and 1 L fluid restriction. Continue to follow sodium -We will consider further adjustment based on nephrology recommendations. COPD, not in exacerbation, active -Restarted patient's Qvar and added DuoNebs -Keep O2 saturation between 88 and 92% Hypertension, present on admission, active -We will follow this clinically and hold medications lisinopril. Depression, present on admission, active -Follow clinically, she is noting a worsening mood without citalopram. -Patient would like to try Wellbutrin. Remote history of nephrolithiasis -CT scan is negative for evidence of obstructive stones. Disposition: Anticipate patient will be in house for several more days. VTE Prophylaxis: Sub-Q Heparin (Unfractionated) Resuscitation Status: CPR: Attempt Resuscitation Time spent 30 minutes Attending Statement I have seen and evaluated patient at bedside in addition to directly supervising care provided by resident physician. I agree with above documentation Erika Angel DO September 24, 2016 09:00 Steve Marcos DO September 24, 2016 14:50
[2016-09-24 09:31] LABS: EOSINOPHILS % (AUTO) 0.2 % (0-5); MONOCYTES % (AUTO) 13.9 % (4-12); Mean Corpuscular Hemoglobin 32.1 pg (27.0-35.0); NEUTROPHILS % (AUTO) 68.1 % (40-74); Platelet Count 642 bil/L (150-400)
[2016-09-24 09:32] LABS: BASOPHILS % (AUTO) 0.5 % (0-3)
--- NOTE | 2016-09-24 10:21 | NUR ---
Verbal Consent to Sign [facility] [employer] INST[employer]ER explained [facility] rights to patient.
[2016-09-24] MEDS: Ertapenem Inj 1,000 MG in 0.9% Sodium Chloride 50 ML IV SCH (11:12)
--- NOTE | 2016-09-24 13:22 | PCM.PNNEPH ---
Subjective Date of Service September 24, 2016 Subjective Patient is feeling better. She no longer has fever or chills. Her mood is down. She would like to try Wellbutrin. Exam Vital Signs Vital Sign - Last Date Time Temp Pulse Resp B/P Pulse Ox O2 Delivery O2 Flow Rate FiO2 09/24/16 08:32 80 09/24/16 08:25 22 94 09/24/16 08:15 36.8 150/88 Room Air Intake and Output 09/23/16 09/23/16 09/24/16 Cumulative From/Thru 15:00 23:00 07:00 09/21/16 13:31 - 09/24/16 05:42 Intake Total 390 ml 75 ml 5520 ml Output Total 1025 ml 600 ml 3960 ml Balance -635 ml -525 ml 1560 ml Intake Oral 390 ml 75 ml 2765 ml IV Total 2755 ml Output Urine Total 1025 ml 600 ml 3960 ml # Voids 2 # Bowel Movements 2 2 Exam General appearance: Awake, alert x3. In no acute distress. Thin. HEENT: Mild pallor. No jaundice. No JVD. No lymphadenopathy. No thyroid enlargement. Dry mucous membranes. Atraumatic. PERRLA. Heart: Regular rhythm. Normal S1, S2. No murmurs, rubs, or gallops. Lungs: Occasional wheezing bilaterally Abdomen is soft, active bowel sounds. Mild tenderness on the suprapubic area. Nondistended. No hepatosplenomegaly. Extremities: No edema, cyanosis. Skin turgor is fair. Lab and Diagnostics Result Diagram: 09/24/1691409/24/16914 X-Rays, CTs and MRIs X-RAY CHEST, TWO VIEWS IMPRESSION: 1. Findings compatible with COPD without evidence of pneumonia. Dictated by: Iraj Marmolejo M.D. on 09/21/2016 at 17:20 CT KUB IMPRESSION: As discussed above the study is somewhat compromised by absence of intravenous contrast and also absence of significant body fat allowing delineation of the anatomy through the retroperitoneum. There is asymmetric enlargement of the left kidney with perinephric edema, but without hydronephrosis. The appearance is more likely to represent evidence of pyelonephritis on the left but it also could be produced by a recently relieved urinary tract obstruction on the left. Please correlate clinically to determine whether infection may be present as cause of the asymmetric enlargement of the left kidney. Contrast-enhanced CT scanning may become necessary. Note is made of extensive diverticulosis at the sigmoid colon but without acute diverticulitis. No mass or free fluid. Dictated by: Cristhian Restrepo M.D. on 09/21/2016 at 16:51 Plan Impression 1. Chronic hyponatremia. Hypovolemia per exam initially. Patient responded well with normal saline. Sodium michelle from 118 to 125. Later on it drops to 124 while being on normal saline. Normal saline was stopped and I put her on fluid restriction and salt tab. 2. Systemic inflammatory response syndrome (SIRS). 3. Acute pyelonephritis. ESBL Escherichia coli. 4. History of hypertension. 5. History of hypothyroid. 6. Tobacco abuse and chronic obstructive pulmonary disease (COPD). Plan: Recommend Wellbutrin. Discontinue Celexa. Fluid restriction 1.5 L a day. Recommend high solute intake to increase urine volume. Continue salt 2 g twice a day. Viktoria Church MD September 24, 2016 13:22
--- NOTE | 2016-09-24 15:09 | CONS ---
[address] [address] CONSULTATION REPORT PATIENT: JUMANA AKBAR : 1950 MR#: [id number] ADMIT: 09/21/2016 JOB ID: [id number] DATE OF SERVICE: 09/24/2016 REASON FOR CONSULTATION: ESBL E. coli pyelonephritis. HISTORY OF THE PRESENT ILLNESS: The patient is a 66-year-old woman who lives with her son in [facility]. She has a long history of cigarette smoking and tells me that she has COPD, though I do not see it listed in the medical record of other providers. She also notes that she has some depression and anxiety issues as well as hypertension and hypothyroidism. She was in her usual state of reasonably good health, however, until about four days before her September 21 admission. That would take us back to about September 17. She reports she developed severe dysuria and frequency in association with bilateral flank pain, fevers, mild chills without rigors, and malaise. She also states she began to become very thirsty. She was evaluated in the emergency department and found to have hyponatremia down to 118, as well as a rather obvious complicated urinary tract infection. The patient was admitted to this facility back on September 21 and quite appropriately started on ceftriaxone as an empiric agent for pyelonephritis. Unfortunately, this organism was returned as an ESBL E. coli, and I was contacted yesterday by Dr. Marcos about appropriate management. I had recommended yesterday if he thought this was strictly a lower urinary tract infection we might get away with fosfomycin but that if we felt that this was an upper tract infection, ertapenem would be the drug of choice. Today, he has formally consulted me on the case. INTERVAL HISTORY: The patient basically relates the basic history of the present illness, as noted above. She noted started with urgency, frequency, dysuria, bilateral flank pain, fever, and some mild shaking chills. This was associated with generalized weakness, nausea, and malaise. She did not have any significant respiratory component but note that she has a chronic cough related to smoking. Since admission, she states she is a little bit but not a lot better and that her nausea has resolved and to some degree her urinary symptoms are improved. Her fevers and chills also seem to have moderated. PAST MEDICAL HISTORY: 1. COPD by patient report. 2. Depression. 3. Hypertension. 4. Adrenal adenoma. 5. Hypothyroidism. 6. Status post hysterectomy. SOCIAL HISTORY: The patient is retired and lives in [place] in a duplex with her son. She rarely drinks alcohol but is an every-day smoker and has been for half a century or so. FAMILY HISTORY: Negative for tuberculosis in first- or second-degree relatives. REVIEW OF SYSTEMS: Today, the patient tells me no headache, no change in vision. She has had a mild sore throat lately which seems to be improving. She has also noticed a very tender lymph node in the right cervical and anterior cervical chain which has been present for perhaps a week or so. No stiff neck. No significant cough beyond which she has at baseline. She does have some mild shortness of breath and cough all the time, however. No chest pain. No nausea, vomiting, or diarrhea, though she did have nausea when she first came into the hospital. She does still have some dysuria but it is diminishing. no swelling of the joints. No weakness and no numbness in the extremities. No skin rash noted. Remainder of the review of systems is negative. PHYSICAL EXAMINATION: Reveals an afebrile woman, temp 36.8, pulse 80, respiratory rate 22, blood pressure 150/88. She is saturating well on room air. Examination of the head reveals no evidence of trauma or temporal wasting. Eyes without conjunctivitis or scleral icterus. Nose is normal. Oral cavity, no thrush or hairy leukoplakia. She has dentures in place. The neck is notable for a about a 1 cm right upper anterior cervical node which is quite tender to palpation. The neck is supple. The lungs are notable for a few wheezes bilaterally. Cardiac tones: Regular rate and rhythm without murmur. The abdomen is soft and nontender. There is bilateral flank tenderness but mild. The patient does not have a Fields catheter. There is no suprapubic fullness. There is no evidence of synovitis or joint effusions. Patient is neurologically quite strong and intact throughout. Peripheral pulses are surprisingly good in this long-term smoker with easily palpable posterior tibial pulses bilaterally. LABORATORIES: Include white count was 19,000 when she came in, now 8000. Platelet count was 382 when she came in, now grossly elevated at 642. Creatinine 0.63. Urinalysis with packed white cells when she first came to the hospital and that urine culture has grown an ESBL E. coli which is only sensitive really to carbapenems and nitrofurantoin. Blood cultures were negative. Includes a CT scan. It shows a large kidney on the left with left-sided perinephric edema. No hydronephrosis is noted. No stones are noted. The radiologist felt that this may be indicative of left renal infection. IMPRESSION: It seems very likely that this patient has community-acquired extended-spectrum beta-lactamase pyelonephritis, an entity we are seeing more and more in this community. Given that she has pyelo, I think we have little to offer her other than intravenous ertapenem on a daily basis which should probably be continued for 10 days or so. In terms of discharge planning, the patient tells me she can get rides from her adult son, with whom she lives, and could easily come back and forth for once a day intravenous ertapenem in the infusion center which may be our best bet. RECOMMENDATIONS: 1. Ertapenem 1 g once a day to be continued for 10 days. 2. Note that this could be continued on an outpatient basis in the [facility], once the patient is ready for discharge. 3. Given that this is an upper tract infection based on her symptoms, as well as the CT scan, I think we have little choice but to continue with tis IV therapy, either in or outpatient. Thank you very much for this consult.
--- NOTE | 2016-09-24 16:02 | NUR ---
Social Work: Readiness for Discharge D: Pt discussed in am rounds. Pt is not ready for discharge at this time but is anticipated to be ready for discharge in 1-2 days. ID recommendation is for 10 days of IV ABX which can be completed at [facility]. CODING COORDINATOR met with patient and daughter at bedside to discuss discharge planning and assess for unmet needs. Pt states she has been ambulating I during admission. She is aware of the IV ABX recommendation by Dr. Jaffe. She agrees with the plan to complete this course of treatment at [facility] and declined to have CODING COORDINATOR speak to MD about home IV abx. EMR Reviewed; no further sw needs identified by CODING COORDINATOR or patient/family. Pt's daughter will transport her home when ready. A: Pt who is I at baseline. P: Pt to discharge home via POV and IV ABX at [facility]; CODING COORDINATOR to continue to follow. CLIFTON Delgado
[2016-09-25] VITALS (7 sets, daily range): BP systolic 135–154; BP diastolic 80–100; PULSE 76–96; RESP 18–20; O2SAT 92–98
[2016-09-25] MEDS: Heparin 5,000 Unit/mL Inj SUBQ SCH ×2 (00:30→08:30)
[2016-09-25] MEDS: Albuterol-Ipratropium 3 mL Inhalation Solution NEB PRN (02:11)
--- NOTE | 2016-09-25 07:12 | NUR ---
Cough Pt c/o persistent cough with resultant headache. Tylenol given. Nebulizer administered by RT as well. Pt requesting cough suppressant. paged, orders received for Tessalon. Administered with good effect.
[2016-09-25] MEDS: Ertapenem Inj 1,000 MG in 0.9% Sodium Chloride 50 ML IV SCH (08:10)
[2016-09-25] MEDS: Fluticasone 100 mCg Inhaler INHALATION SCH (08:10)
--- NOTE | 2016-09-25 08:12 | PROG NOTE ---
[address] [address] PROGRESS NOTE PATIENT: JUMANA AKBAR : 1950 MR#: [id number] ADMIT: 09/21/2016 JOB ID: [id number] DATE: 09/25/2016 REASON FOR FOLLOW UP: ESBL pyelonephritis. INTERVAL HISTORY: The patient has felt extremely well overnight. She denies any fevers, chills, sweats, cough, shortness of breath, abdominal pain, or flank pain. No issues with the ertapenem therapy. PHYSICAL EXAMINATION: Reveals an afebrile woman temp 36.7, pulse 76, respiratory rate 18, blood pressure 135/80. She is saturating well on room air. The patient is awake and alert. Oral cavity negative. Lungs clear. Cardiac tones without new murmur. Abdomen benign. No flank tenderness. LABORATORIES: Include white count 8200, platelet count 642,000. Creatinine is 0.56. Procalcitonin 0.44. Urinalysis on admission was packed with white cells and grew ESBL E. coli. Blood cultures were negative. IMPRESSION: The patient has extended spectrum beta-lactamase pyelonephritis. She appears to be doing extremely well this morning and is anxious to be discharged. As was discussed in yesterday's consult, I think the optimal management here would be 10 days of IV ertapenem as we have little else to offer him. I do not think that oral therapy with fosfomycin would be appropriate given that she clearly had signs of upper tract disease. RECOMMENDATIONS: 1. From ID point of view, the patient can be discharged today. 2. I have written for a midline catheter to be installed for the patient's convenience and for 1 g once a day of ertapenem to be given in the MOC through October 04. 3. Labs will be rechecked on October 02. 4. I would probably do not need to see this patient in followup in my clinic as this is relatively straightforward, but if need be I can certainly see the patient on October 04 which would be her last day of scheduled IV antibiotics.
[2016-09-25] MEDS ORDERED: Bupropion Hcl PO (10:13)
--- NOTE | 2016-09-25 10:22 | PCM.DIMED ---
Erika Angel DO 09/25/16 1022: Discharge Instructions Date of Service September 25, 2016 Dates of Hospitalization September 21, 2016 at 17:52 Discharge Diagnosis Discharge Diagnosis Acute pyelonephritis secondary to ESBL, present on admission, active Hyponatremia, present on admission, active COPD, not in exacerbation, active Hypertension, present on admission, active Depression, present on admission, active Remote history of nephrolithiasis Medication Instructions Please stop your Celexa. This medication has caused your sodium to be too low. You were started on Wellbutrin. Please follow up with your primary care doctor in no more than one week to check your sodium level again. Your blood pressure was also normal so you have not had your blood pressure medication while you were here. Please continue to hold off on it until you see your PCP. He or she can decide on restarting it. Diet Other (Fluid restriction) Activity Limited until seen by PCP Call your provider Other (Confusion) Patient Instructions Continue with fluid restriction of 1.5 L a day. Continue salt 2 g twice a day. Please follow up with nephrology in a couple of week. Please follow up with your PCP in no more than 1 week. You had a PICC line placed, this will be used to give you IV antibiotics. You will need to come back to the MOC in this hospital, located on the second floor, everyday until October 04 to continue to get your IV antibiotics (called ertapenem). You will need your labs rechecked on October 02. Follow-up Provider: Destiny Oreilly PA-C Follow-up with PCP in: 1 week Deni Reyes MD 09/27/16 0712: Discharge Instructions Attending's Statement I interviewed and examined the patient on rounds today. I agree with the assessment and plan as stated above. Erika Angel DO September 25, 2016 10:22 Deni Reyes MD September 27, 2016 07:12
[2016-09-25] MEDS ORDERED: SODI1TAB2 PO (10:24)
--- NOTE | 2016-09-25 15:52 | NUR ---
Social Work Note: Discharge Data& Assessment: Per pt is medically ready for discharge. SIN met with pt and pt family at bedside to confirm discharge plan and assess for any unmet needs. Francine Terry is a 66 year old female admitted on 09/21/2016 for hyponatremia and pylonephritis. Per pt is medically improved and ready for discharge. Pt will be receiving IV abx through [facility] beginning tomorrow, Sunday09/26/2016 at 2:30p.m Pt and family aware. Pt denies any other needs. Pt family to transport pt family home today. Pt and pt family deny any other needs. No other discharge needs identified. All updated and agreeable to plan. Plan: Per pt is medically ready to discharge home via POV with IV abx daily at [facility] beginning tomorrow Sunday09/26/2016 at 2:30p.m Pt and pt family deny any other needs. No other discharge needs identified. All updated and agreeable to plan. CLIFTON Waddell
--- NOTE | 2016-09-25 16:41 | NUR ---
Discharge The pt left the unit on foot with her daughter at 1640. The pt left with all her belongings and her packet of discharge teaching. A midline IV was placed by IV therapy for a week of infusions on MOC. The pt verbalized understanding of all discharge teaching; including MOC/infusion instructions, midline IV care instructions, new scripts and follow up appointment info. The pt left the unit A&O x3 with vitals WNL for the pt.
--- NOTE | 2016-09-26 16:40 | PCM.DC.MED ---
Discharge Summary Date of Service September 26, 2016 Dates of Hospitalization Date of Hospital Admission September 21, 2016 at 17:52 Date of Discharge: September 25, 2016 Providers: Admitting Physician: Jayden Ellington MD Primary Care Physician: Destiny Oreilly PA-C Attending Physician: Jayden Ellington MD Diagnosis at Time of Discharge Diagnosis at Time of Discharge Acute pyelonephritis secondary to ESBL, present on admission, active Hyponatremia, present on admission, active COPD, not in exacerbation, active Hypertension, present on admission, active Depression, present on admission, active Remote history of nephrolithiasis Consultations Infectious disease Nephrology Procedures XRay, CTs & MRIs X-RAY CHEST, TWO VIEWS IMPRESSION: 1. Findings compatible with COPD without evidence of pneumonia. Dictated by: Iraj Marmolejo M.D. on 09/21/2016 at 17:20 CT KUB IMPRESSION: As discussed above the study is somewhat compromised by absence of intravenous contrast and also absence of significant body fat allowing delineation of the anatomy through the retroperitoneum. There is asymmetric enlargement of the left kidney with perinephric edema, but without hydronephrosis. The appearance is more likely to represent evidence of pyelonephritis on the left but it also could be produced by a recently relieved urinary tract obstruction on the left. Please correlate clinically to determine whether infection may be present as cause of the asymmetric enlargement of the left kidney. Contrast-enhanced CT scanning may become necessary. Note is made of extensive diverticulosis at the sigmoid colon but without acute diverticulitis. No mass or free fluid. Dictated by: Cristhian Restrepo M.D. on 09/21/2016 at 16:[address] Ellington's H&P: "This is a 66-year-old female who is been ill for about 4 days. She primarily has noticed urinary symptoms of discoloration cloudiness and burning with urination. She has had intermittent fevers and chills and some bilateral flank pain. She has had no nausea or vomiting but has had anorexia and decreased by mouth intake. She does feel dehydrated and thirsty. She denies any confusion. She also denies urinary retention. In the ER she was noted to have a sodium of 118 and he is on citalopram however this is chronic has been on board for at least 2 years with no recent dose changes. Nephrology wondered if she had SIADH relating to citalopram and initially recommended holding this drug after seen in the ER and a fluid restriction. However she does also appear somewhat hypovolemic. She was given 1 L of saline in the emergency department. She denies any riders. No other infectious symptoms including rhinorrhea cough sore throat. No diarrhea. No blood per rectum." Hospital Course Francine Terry is a 66 year old woman currently under treatment for pyelonephritis and SIADH. Hospital day #4 Acute pyelonephritis secondary to ESBL, present on admission, active - Blood cultures negative x 48 hours - Infectious disease consultation obtained. We await recommendations. - Patient started on ertapenem and will continue infusions at the [facility] until October 04. Hyponatremia, present on admission, active -Likely multifactorial: Initially due to hypovolemia and SIADH, now secondary to SIADH alone -Nephrology is recommended stopping citalopram -2 g salt tabs, fluid restriction to 1.5 L per day. COPD, not in exacerbation, active -Restarted patient's Qvar and added DuoNebs Hypertension, present on admission, active -held medications including lisinopril. Depression, present on admission, active -Started on Wellbutrin. Remote history of nephrolithiasis -CT scan is negative for evidence of obstructive stones. Patient safe for discharge due to improvement of her sodium, stable vital signs , and normalized white count. Exam Vital Signs (Last) Date Time Temp Pulse Resp B/P Pulse Ox O2 Delivery O2 Flow Rate FiO2 09/25/16 12:58 96 18 142/89 93 Room Air 09/25/16 08:08 36.8 Exam Oriented 3. No distress. Fluent speech. Normal affect. Normal skull. Normal nose and ears. Anicteric sclera, symmetric pupils Oropharynx is unremarkable. Mucosa moist and pink. Neck is supple, normal thyroid. No adenopathy. Lungs are clear to auscultation with reduced breath sounds. Heart is regular without murmur gallop or rub. Abdomen soft, nondistended or tender. Extremities are free of pedal edema. Good radial and pedal pulses. Skin is free of rash, lesions. No petechiae or ecchymosis. Joints are grossly normal. Cranial nerves are grossly normal. Motor strength is normal in all extremities. Normal muscular tone. Test 09/21/16 13:57 09/21/16 14:45 5/19/17 02:47 09/23/16 17:53 Urine Color Straw (YELLOW) Urine Appearance Slightly cloudy Urine pH 6.0 (5.0-8.0) Urine Specific Foley 1.010 (1.003-1.035) Urine Protein 100mg/dL (NEG,TRACE) Urine Glucose (UA) Negativemg/dL (NEGATIVE) Urine Ketones Tracemg/dL (NEGATIVE) Urine Occult Blood Large (NEGATIVE) Urine Nitrite Positive (NEGATIVE) Urine Bilirubin Negative (NEGATIVE) Urine Urobilinogen Normalmg/dL (NORMAL) Urine Leukocyte Esterase Large (NEGATIVE) Urine RBC 3-10/hpf (0-2) Urine WBC >50/hpf (0-5) Urine Epithelial Cells Occasional/hpf (NONE-MOD) Urine Crystals None seen (NONE SEEN) Urine Bacteria Many/hpf (NONE-FEW) Urine Hyaline Casts None/lpf (NONE) Urine Granular Casts None seen (NONE SEEN) Urine Waxy Casts None seen (NONE SEEN) Urine Red Blood Cell Casts None seen (NONE SEEN) Urine White Blood Cell Casts None seen (NONE SEEN) Urine Mucus None seen (None Seen) Urine Trichomonas None seen (NONE SEEN) Urine Yeast None (NONE SEEN) Urinalysis Comment None Urine Culture Reflexed Indicated Urine Random Chloride 10mEq/L Osmolality 255 (275-300) Lactic Acid Level 0.6mmol/L (0.4-2.0) Uric Acid 4.2mg/dL (2.6-7.2) Troponin T < 0.010ug/L (0.0-0.011) Thyroid Stimulating Hormone (TSH) 0.773uIU/mL (0.450-4.500) Hold Grijalva Top Tube Received (Received) Total Bilirubin 0.2mg/dL (0.0-1.2) Aspartate Amino Transf (AST/SGOT) 24U/L (0-50) Alanine Aminotransferase (ALT/SGPT) 19U/L (0-32) Alkaline Phosphatase 106U/L (25-165) Total Protein 5.4g/dL (6.4-8.4) Albumin 2.9g/dL (3.4-5.0) Urine Osmolality 394mOs/kH2O (250-1200) Urine Random Sodium 80mEq/L Hold Urine Received (Received) Test 09/24/16 09:15 White Blood Count 8.2th/mm3 (3.8-10.1) Red Blood Count 3.52mil/mm3 (3.90-5.20) Hemoglobin 11.3g/dL (12.0-15.6) Hematocrit 32.4% (35.0-46.0) Mean Corpuscular Volume 92.0fL (81-100) Mean Corpuscular Hemoglobin 32.1pg (27.0-35.0) Mean Corpuscular Hemoglobin Concent 34.9% (32.0-37.0) Red Cell Distribution Width 11.8% (12.3-15.4) Platelet Count 642bil/L (150-400) Neutrophils (%) (Auto) 68.1% (40-74) Lymphocytes (%) (Auto) 16.9% (14-46) Monocytes (%) (Auto) 13.9% (4-12) Eosinophils (%) (Auto) 0.2% (0-5) Basophils (%) (Auto) 0.5% (0-3) Sodium Level 132mEq/L (134-144) Potassium Level 4.5mEq/L (3.5-5.2) Chloride Level 94mEq/L (97-108) Carbon Dioxide Level 26mmol/L (18-29) Blood Urea Nitrogen 12mg/dL (8-27) Creatinine 0.56mg/dL (0.57-1.00) Estimat Glomerular Filtration Rate 155mL/min (>59) Glucose Level 114mg/dL (60-99) Calcium Level 9.4mg/dL (8.5-10.1) Procalcitonin 0.44ng/mL (0.00-0.08) Discharge Medications Discharge Medications ([Bupropion Hcl]) 75 MG TABLET 75 MG PO TIDWM Prescribed by: DIANNE ANGEL DO Beclomethasone Dipropionate (Qvar) 8.7 Gm Aer.w.adap 1 DOSE INH BID (Reported) Levothyroxine (Levothyroxine) 25 Mcg Tablet 25 MCG PO DAILY (Reported) Magnesium Chloride (Slow-Mag) 64 Mg Tablet 64 MG PO DAILY (Reported) Sodium Chloride (Sodium Chloride) 1 Gm Tablet 2 GM PO BIDWM Prescribed by: DIANNE ANGEL DO As needed Acetaminophen/Pamabrom (Midol) 1 Each Tablet 1 TABLET PO BID PRN PRN For Pain ( Reported) Albuterol HFA (Proair HFA) 8.5 Gm Hfa.aer.ad 1-2 PUFFS IH q4-6h PRN PRN For Shortness of Breath (Reported) Loratadine (Claritin) 10 Mg Capsule 10 MG PO DAILY PRN PRN For Congestion ( Reported) Additional med instructions Please stop your Celexa. This medication has caused your sodium to be too low. You were started on Wellbutrin. Please follow up with your primary care doctor in no more than one week to check your sodium level again. Your blood pressure was also normal so you have not had your blood pressure medication while you were here. Please continue to hold off on it until you see your PCP. He or she can decide on restarting it. Followup Plan Discharge Diet: Other (Fluid restriction) Discharge Activity: Limited until seen by PCP Patient Instructions Continue with fluid restriction of 1.5 L a day. Continue salt 2 g twice a day. Please follow up with nephrology in a couple of week. Please follow up with your PCP in no more than 1 week. You will need to come back to the [facility] in this hospital, located on the second floor, everyday until October 04 to continue to get your IV antibiotics (called ertapenem). You will need your labs rechecked on October 02. Follow-up Provider: Destiny Oreilly PA-C Follow-up with PCP in: 1 week Time spent 35 minutes Attending Statement I interviewed and examined the patient on rounds today. I agree with the assessment and plan as stated above. Discharge plans were explained to patient had no further questions. Dianne Angel DO September 26, 2016 15:48 Deni Reyes MD September 27, 2016 07:16
== END 2016-09-25 16:30 | disposition home or self-care (01) | DRG 690 ==
LOC: SED 13:23 → PCC 17:52
PROVIDERS: ADMIT Hospitalist; ATTEND Hospitalist
DX: N10 Acute pyelonephritis (principal); E22.2 Syndrome of inappropriate secretion of antidiuretic hormone; E03.9 Hypothyroidism, unspecified; I10 Essential (primary) hypertension; J44.9 Chronic obstructive pulmonary disease, unspecified; F32.9 Major depressive disorder, single episode, unspecified; K57.30 Diverticulosis of large intestine without perforation or abscess without bleeding; F17.210 Nicotine dependence, cigarettes, uncomplicated; B96.20 Unspecified Escherichia coli [E. coli] as the cause of diseases classified elsewhere; Z79.51 Long term (current) use of inhaled steroids